=== PATIENT | male | born 1990 | race Caucasian/White ===

== ENCOUNTER 2017-12-24 20:15 | Emergency (ER) | payer OTHER ==
[~2017-12-24] VITALS: Ht 182.9 cm; Wt 72.6 kg
[~2017-12-24 20:15] MED LIST: CLEOCIN HCL150 MG PO; NORCO 5-325 TA1 EACH PO; PENICILLIN VK500 M1 PO; PENICILLIN VK500 MG PO; ULTRAM 50MG TAB50 MG PO; VEETIDS 500500 MG PO
[2017-12-24 22:43] VITALS: BP 145/94
== END 2017-12-24 22:44 | disposition home or self-care (01) ==
LOC: M.ERS 20:15
DX: S16.1XXA Strain of muscle, fascia and tendon at neck level, initial encounter (principal); S00.03XA Contusion of scalp, initial encounter; S60.412A Abrasion of right middle finger, initial encounter; J45.909 Unspecified asthma, uncomplicated; Z88.8 Allergy status to other drugs, medicaments and biological substances; Z91.018 Allergy to other foods; V89.2XXA Person injured in unspecified motor-vehicle accident, traffic, initial encounter; Y93.89 Activity, other specified; Y92.89 Other specified places as the place of occurrence of the external cause; Y99.8 Other external cause status

== ENCOUNTER 2018-09-24 19:27 | Emergency (ER) | payer OTHER ==
[~2018-09-24] VITALS: Ht 185.4 cm; Wt 83.9 kg
[2018-09-24] MEDS ORDERED: ACETAMINOPHEN-1 EAC1 PO (20:13)
[2018-09-24] MEDS ORDERED: NAPROSYN500 MG PO (20:13)
[2018-09-24] MEDS ORDERED: PENICILLIN V P500 MG PO (20:13)
[2018-09-24 20:52] VITALS: BP 150/84
== END 2018-09-24 20:53 | disposition home or self-care (01) ==
LOC: M.ERS 19:27
DX: K04.7 Periapical abscess without sinus (principal); J45.909 Unspecified asthma, uncomplicated; F17.200 Nicotine dependence, unspecified, uncomplicated; Z88.8 Allergy status to other drugs, medicaments and biological substances

== ENCOUNTER 2018-10-14 19:30 | Emergency (ER) | payer OTHER ==
[~2018-10-14] VITALS: Ht 185.4 cm; Wt 83.9 kg
[~2018-10-14 19:30] MED LIST changes: +ACETAMINOPHEN-1 EAC1 PO; +NAPROSYN500 MG PO; +PENICILLIN V P500 MG PO
[2018-10-14 19:43] VITALS: BP 136/74
[2018-10-14] MEDS ORDERED: CLEOCIN HCL150 MG PO (20:01)
== END 2018-10-14 20:10 | disposition home or self-care (01) ==
LOC: M.ERS 19:30
DX: K08.89 Other specified disorders of teeth and supporting structures (principal); J45.909 Unspecified asthma, uncomplicated; F17.200 Nicotine dependence, unspecified, uncomplicated; Z91.010 Allergy to peanuts; Z88.8 Allergy status to other drugs, medicaments and biological substances

== ENCOUNTER 2019-08-30 15:35 | Emergency (ER) | payer OTHER ==
[~2019-08-30] VITALS: Ht 185.4 cm; Wt 88.5 kg
[2019-08-30] MEDS ORDERED: PROAIR HFA8.5 GM INH (15:45)
[2019-08-30] MEDS ORDERED: MEDROLDOSEPACK PO (16:28)
[2019-08-30] MEDS ORDERED: LIDODERM1 EACH TRANSDERM (16:28)
[2019-08-30 16:45] VITALS: BP 140/87
== END 2019-08-30 16:46 | disposition home or self-care (01) ==
LOC: M.ERS 15:35
DX: S29.012A Strain of muscle and tendon of back wall of thorax, initial encounter (principal); J45.909 Unspecified asthma, uncomplicated; Z98.890 Other specified postprocedural states; Z88.8 Allergy status to other drugs, medicaments and biological substances; X58.XXXA Exposure to other specified factors, initial encounter; Y93.89 Activity, other specified; Y92.89 Other specified places as the place of occurrence of the external cause; Y99.8 Other external cause status

== ENCOUNTER 2021-06-18 20:37 | Emergency (ER) | payer OTHER ==
[~2021-06-18] VITALS: Ht 185.4 cm; Wt 106.6 kg
[~2021-06-18 20:37] MED LIST changes: +IBUPROFEN 800800 M1 PO; +LIDODERM1 EACH TRANSDERM; +MEDROLDOSEPACK PO; +PROAIR HFA8.5 GM INH
[2021-06-18 22:13] LABS: ABSOLUTE BASOPHILS 0.1 thou/uL (0.0-0.2); ABSOLUTE EOSINOPHILS 0.3 thou/uL (0.0-0.7); ABSOLUTE LYMPHOCYTES 2.9 thou/uL (0.8-5.3); ABSOLUTE MONOCYTES 1.2 thou/uL (0.0-1.2); ABSOLUTE NEUTROPHILS 4.1 thou/uL (1.6-8.1); BASOPHILS 0.9 %; HEMATOCRIT 43.9 % (42.0-52.0); HEMOGLOBIN 15.5 gm/dL (14.0-18.0); LYMPHOCYTES 33.2 %; MCH 31.2 pg (26.0-34.0); MCHC 35.3 g/dL (28.0-37.0); MCV 88.4 fL (80.0-100.0); MONOCYTES 14.1 %; MPV 8.7 fl. (7.2-11.1); NUCLEATED RBCS 0 /100WBC; PLATELET COUNT* 214 thou/uL (150-400); POLYS 47.8 %; RBC 4.97 mil/uL (4.50-6.00); RDW-CV 13.5 % (10.5-14.5); WBC 8.6 thou/uL (4.0-11.0)
[2021-06-18 22:25] LABS: CREATININE 1.2 mg/dL (0.6-1.3); POTASSIUM 3.9 mmol/L (3.5-5.1)
[2021-06-18 22:30] LABS: ALBUMIN 4.4 g/dL (3.4-5.0); TOTAL BILIRUBIN 0.5 mg/dL (<0.1-1.0); TOTAL PROTEIN 7.6 g/dL (6.4-8.2); URIC ACID* 6.2 mg/dL (2.6-7.2)
[2021-06-18] MEDS ORDERED: NAPROSYN500 M1 PO (22:39)
[2021-06-18 22:43] VITALS: BP 141/70
== END 2021-06-18 22:44 | disposition home or self-care (01) ==
LOC: M.ERS 20:37
PROVIDERS: Physician Assistant
DX: M25.472 Effusion, left ankle (principal); J45.909 Unspecified asthma, uncomplicated; F17.210 Nicotine dependence, cigarettes, uncomplicated; Z90.89 Acquired absence of other organs; Z88.8 Allergy status to other drugs, medicaments and biological substances; Z91.018 Allergy to other foods